=== PATIENT | female | born 1945 | race Caucasian/White ===

== ENCOUNTER 2018-06-08 22:51 | Observation (INO) | payer OTHER ==
[~2018-06-08] VITALS: Ht 162.6 cm; Wt 88.0 kg
[2018-06-08 22:56] VITALS: Ht 162.6 cm; Wt 88.0 kg
--- NOTE | 2018-06-08 22:56 | NUR ---
DR. LIANG AT BEDSIDE FOR MSE
--- NOTE | 2018-06-08 23:04 | NUR ---
PT BIBA FOR LOWER BACK/ABDOMINAL PAIN X 10 DAYS S/P SYNCOPAL EPISDES (1 2-3MOS AGO AND ONE 10 DAYS AGO). PT DENIES NUMBNESS OR TINGLING. PT AWAKE, ALERT, RESPIRATIONS EVEN AND UNLABORED. SAFETY PRECAUTIONS IN PLACE.
[2018-06-08 23:16] LABS: BASOPHIL % 0.7 % (0-2); PLATELET COUNT 269 x10^3mcL (130-400); RED CELL DISTRIBUTION WIDTH 12.5 % (11.5-14.5)
--- NOTE | 2018-06-08 23:29 | NUR ---
VERBALIZED TO PATIENT FOR NEED TO PROVIDE URINE SAMPLE, PATIENT VERBALIZES UNDERSTANDING AND STATES "I DON'T FEEL LIKE I COULD GO RIGHT NOW."
[2018-06-08 23:30] LABS: CALCIUM 9.5 mg/dL (8.5-10.1); CARBON DIOXIDE 23.3 mmol/L (21-32); CHLORIDE SERUM 91 mmol/L (98-107); GLUCOSE SERUM 111 mg/dL (74-106); POTASSIUM SERUM 3.2 mmol/L (3.5-5.1); SODIUM SERUM 128 mmol/L (136-145)
--- NOTE | 2018-06-08 23:37 | NUR ---
PT REMINDED OF NEED TO OBTAIN URINE SAMPLE, PT STATES THEY ARE UNABLE TO URINATE AT THIS TIME. PT ACKNOWLEDGED REQUEST FOR URINE SAMPLE.
--- NOTE | 2018-06-08 23:38 | NUR ---
PT OBSERVED SITTING ON GURNEY WITH HOB RAISED. PT IN NAD. BREATHING EVEN AND UNLABORED. PT A&OX4, SPEAKING FULL CLEAR SENTENCES. PT TO CT VIA [employer] AT THIS TIME.
[2018-06-08 23:41] LABS: ALKALINE PHOSPHATASE 116 U/L (46-116); ALT/SGPT 38 U/L (14-59); AST/SGOT 20 U/L (15-37); BILIRUBIN TOTAL 0.6 mg/dL (0.20-1.00); MAGNESIUM 1.4 mg/dL (1.8-2.4); TOTAL PROTEIN, SERUM 7.4 g/dL (6.4-8.2)
--- NOTE | 2018-06-08 23:48 | NUR ---
PT BACK FROM CT [facility]IA [facility]. PT A&0X4 IN NAD. BREATHING EVEN AND UNLABORED. CM AND [address], WILL CONTINUE TO MONITOR.
--- NOTE | 2018-06-09 00:14 | NUR ---
PT AWAKE, ALERT, RESPIRATIONS EVEN AND UNLABORED. SAFETY PRECAUTIONS IN PLACE
[2018-06-09 00:51] LABS: microscopic required? YES; urine erythrocyte TRACE (NEGATIVE)
--- NOTE | 2018-06-09 01:19 | NUR ---
DR. LIANG IN TO SPEAK TO PATIENT REGARDING PLAN OF CARE
[2018-06-09] MEDS ORDERED: METFORMIN HYDR500 M1 PO ×2 (01:28)
[2018-06-09] MEDS ORDERED: LOSARTAN POTASS1 TA6 PO (01:29)
[2018-06-09] MEDS ORDERED: ATORVASTATIN CA40 M1 PO (01:29)
[2018-06-09] MEDS ORDERED: HCTZ/LISINOPRIL1 TA2 PO (01:29)
--- NOTE | 2018-06-09 01:31 | NUR ---
RECEIVED CRITICAL RESULTS REGARDING CT LUMBAR SCAN RESULTS, RESULTS GIVEN TO DR. LIANG WHO VERBALIZED UNDERSTANDING OF RESULTS
--- NOTE | 2018-06-09 02:19 | NUR ---
REPORT CALLED TO LUIS ANTONIO, ALL QUESTIONS AND CONCERNS WERE ADDRESSED
[2018-06-09 02:54] VITALS: BP 147/78
--- NOTE | 2018-06-09 03:37 | NUR ---
Admitted this 72y/o female from ED via [facility]. Alert and oriented x4.[id number]'AQ. No SOB noted on room air. c/o low back pain when moved. Admission assessment done. tele#7 sinus rhythm/sinus shan. Safety maintained. Call light within reach.
[2018-06-09 05:14] VITALS: BP 134/70
[2018-06-09 06:45] LABS: ALBUMIN 3.5 g/dL (3.4-5.0); ALKALINE PHOSPHATASE 97 U/L (46-116); ALT/SGPT 33 U/L (14-59); AST/SGOT 17 U/L (15-37); BILIRUBIN TOTAL 0.5 mg/dL (0.20-1.00); CALCIUM 8.9 mg/dL (8.5-10.1); CARBON DIOXIDE 25.6 mmol/L (21-32); CHLORIDE SERUM 95 mmol/L (98-107); CREATININE SERUM 0.8 mg/dL (0.6-1.0); GLUCOSE SERUM 101 mg/dL (74-106); MAGNESIUM 2.1 mg/dL (1.8-2.4); POTASSIUM SERUM 4.1 mmol/L (3.5-5.1); SODIUM SERUM 132 mmol/L (136-145); TOTAL PROTEIN, SERUM 6.8 g/dL (6.4-8.2)
[2018-06-09 06:56] LABS: BASOPHIL % 0.7 % (0-2); PLATELET COUNT 247 x10^3mcL (130-400); RED CELL DISTRIBUTION WIDTH 12.7 % (11.5-14.5)
--- NOTE | 2018-06-09 07:20 | NUR ---
RECEIVED PT FROM [employer]. PT AWAKE, ALERT A/OX4. PT ON ROOM AIR, NO RESP DISTRESS NOTED. LUNGS CTA. PT ON TELE #7, DENIES CHEST PAIN. IV ACCESS LFA C/D/I INFUSING NS AT 70ML/HR. ACTIVE BOWEL SOUNDS NOTED. NO APPARENT ISSUES WITH ELIMINATION AT THIS TIME. PT REPORTS PAIN 7/10 TO LOWER BACK, PT REPOSITIONED IN BED. WILL MEDICATE PRN. PERIPHERAL PULSES PALPABLE, NO EDEMA NOTED. SAFETY MEASURES IN PLACE, BED LOW AND LOCKED. CALL LIGHT WITHIN REACH.
--- NOTE | 2018-06-09 08:17 | NUR ---
Nutrition Note: Nursing trigger for "admitted with potential risk diagnosis" identified on 06/09/18. Pt. admitted with AC T11 Fx, elevated troponin, and severe lower back pain per H and P documentations. Pt. does not meet high risk criteria based on nutrition screen, and will be assessed as moderate risk, with initial assessment due on 06/12-06/14/18.
--- NOTE | 2018-06-09 08:45 | NUR ---
PT COMPLAINING OF PAIN TO LOWER BACK, TYLENOL ADMINISTERED WITH AM MEDICATIONS. PT 08/30. FAMILY AT BEDSIDE. WILL MONITOR.
[2018-06-09 09:00] VITALS: BP 126/61
--- NOTE | 2018-06-09 09:45 | NUR ---
PT REPORTS TYLENOL NOT EFFECTIVE, REQUESTING STRONGER PAIN MEDICINE. MORPHINE ADMINISTERED ORDERED PRN FOR PAIN 7 I LOWER BACK. PT AWAKE, ALERT WITH NO RESP DISTRESS. WILL CONT TO MONITOR.
[2018-06-09 11:32] VITALS: BP 126/61
--- NOTE | 2018-06-09 11:45 | NUR ---
PT REPORTS RELIEF AFTER MORPHINE ADMNINSTRATION. NO DISCOMFORT OR ACUTE DISTRESS NOTED AT THIS TIME. PT RESTING IN BED. CALL LIGHT WITHIN REACH.
[2018-06-09 12:33] VITALS: BP 114/62
--- NOTE | 2018-06-09 16:46 | NUR ---
PT DISCHARGE INSTRUCTIONS/EDUCATION PROVIDED TO FAMILY AND PATIENT. PT VERBALIZED UNDERSTANDING. TELE BOX REMOVED AND GIVEN TO ASSEMBLER [employer]. IV ACCESS REMOVED WITH CATHETER INTACT. PT STABLE AT THIS TIME. NO ACUTE DISTRESS NOTED. FAMILY AT BEDSIDE WITH PATIENT. ALL NEEDS MET THROUGHOUT SHIFT. PT TO BE TAKEN BY WHEELCHAIR TO [facility] FOR DISCHARGE. SAFETY MAINTAINED.
== END 2018-06-09 17:01 | disposition home or self-care (01) | DRG 552 ==
LOC: ED 22:51 → DU 06-09 01:35
PROVIDERS: Emergency Medicine; ADMIT Internal Medicine Pulmonary Disease
DX: S22.080A Wedge compression fracture of T11-T12 vertebra, initial encounter for closed fracture (principal); R55 Syncope and collapse; E11.9 Type 2 diabetes mellitus without complications; I10 Essential (primary) hypertension; Z79.82 Long term (current) use of aspirin; Z79.84 Long term (current) use of oral hypoglycemic drugs; Z68.33 Body mass index [BMI] 33.0-33.9, adult; Z91.81 History of falling; W18.11XA Fall from or off toilet without subsequent striking against object, initial encounter; Y92.002 Bathroom of unspecified non-institutional (private) residence as the place of occurrence of the external cause
CPT/HCPCS: G0378; J1644; J2270; J2405; J3010; J3475; J7030; Q0092